=== PATIENT | female | born 1990 | race Two or more races ===

== ENCOUNTER 2024-12-28 17:18 | Inpatient (IN) | payer OTHER ==
[~2024-12-28] VITALS: Ht 165.1 cm; Wt 84.8 kg
[2024-12-28] MEDS ORDERED: LAMICTAL200 MG PO (17:35)
[2024-12-28] MEDS ORDERED: ABILIFY5 MG PO (17:35)
[2024-12-28] MEDS ORDERED: TRUVADA 200 MG1 EACH PO (17:36)
[2024-12-28] MEDS ORDERED: ONDANSETRON HCL 2 MG/ML VIAL IV ONE (18:45)
[2024-12-28] MEDS ORDERED: KETOROLAC TROMETHAMINE 30 MG VIAL IV ONE (18:45)
[2024-12-28] MEDS ORDERED: CEFTRIAXONE SODIUM 1,000 MG VIAL IV ONE (18:45)
[2024-12-28] MEDS ORDERED: FAMOtidine 10 MG/ML (4ML VIAL) IV ONE (18:45)
[2024-12-28] MEDS ORDERED: TAMSULOSIN HCL 0.4 MG CAP PO ONE ×2 (18:45→18:46)
[2024-12-28] MEDS ORDERED: KETOROLAC TROMETHAMINE 30 MG VIAL ONE (18:46)
[2024-12-28] MEDS ORDERED: ONDANSETRON HCL 2 MG/ML VIAL ONE (18:47)
[2024-12-28] MEDS ORDERED: FAMOTIDINE/PF 20 MG/2 ML VIAL ONE (18:47)
[2024-12-28] MEDS ORDERED: CEFTRIAXONE SODIUM 1,000 MG VIAL ONE (18:47)
[2024-12-28 19:27] LABS: BASO % 0.2 % (0.1-1.2); EOS # 0.01 (0.04-0.54); HEMATOCRIT 40.7 % (34.1-44.9); HEMOGLOBIN 14.3 g/dL (11.2-15.7); LYMPH # 0.61 (1.18-3.74); LYMPH % 2.6 % (19.3-53.1); MEAN CORPUSCULAR HEMOGLOBIN 32.6 pg (25.6-32.2); MONO # 1.95 (0.24-0.82); MONO % 8.2 % (4.7-12.5); NEUT # 21.08 (1.56-6.13); NEUT % 88.5 % (34.0-71.1); PLATELET COUNT 348 K/uL (163-369); RED BLOOD COUNT 4.38 M/uL (3.93-5.22); RED CELL DISTRIBUTION WIDTH 14.1 % (11.6-14.4)
[2024-12-28 19:27] LABS: URINE APPEARANCE Cloudy; URINE BILIRRUBIN Negative (NEGATIVE); URINE BLOOD Large; URINE COLOR Yellow; URINE GLUCOSE Negative (NEGATIVE); URINE KETONE Trace (NEGATIVE); URINE LEUKOCYTE Large; URINE NITRATE Negative; URINE PROTEIN 30 (NEGATIVE); URINE UROBILINOGEN 0.2 E.U./dl
[2024-12-28 19:31] LABS: URINE BACTERIA 3453.6 uL (0.0-1933); URINE EPITHELIAL CELLS 3.4 uL (0.0-38.8); URINE WBC 1791.1 uL (0.0-23.2)
[2024-12-28 19:49] LABS: INR 1.2; PARTIAL THROMBOPLASTIN TIME 27.9 SECONDS (22.0-34.0); PROTHROMBIN TIME 12.9 SECONDS (9.0-11.5)
[2024-12-28 20:08] LABS: ALBUMIN 3.6 gm/dL (3.4-5.0); ALKALINE PHOSPHATASE 136 U/L (50-136); ALT/SGPT 42 U/L (12-78); ANION GAP 11 (10.0-20.0); AST/SGOT 20 U/L (15-37); BILIRUBIN TOTAL 0.78 mg/dL (0.3-1.2); BLOOD UREA NITROGEN 9 mg/dL (7-18); BUN CREA RATIO 10 (7.0-25.0); CALCIUM 9.3 mg/dL (8.5-10.1); CARBON DIOXIDE 24 mEq/L (21-32); CHLORIDE 104 mmol/L (98-107); CREATININE SERUM 0.89 mg/dL (0.55-1.02); GFR 71.76; GLOBULINA 4.8 G/DL (2.4-3.5); GLUCOSE FASTING 110 mg/dL (65-100); OSMOLALITY SERUM 269 MOSM/KG (275-295); POTASSIUM 3.84 mEq/L (3.5-5.1); SODIUM 135 mmol/L (136-145); TOTAL PROTEIN 8.4 gm/dL (6.4-8.2)
[2024-12-28 20:25] LABS: HCG QUANTITATIVE < 1 mUI/mL (1-3)
[2024-12-28] MEDS ORDERED: METHYLPREDNISOLONE SOD SUCC 125 MG VIAL ONE (21:42)
[2024-12-28] MEDS ORDERED: DIPHENHYDRAMINE HCL 50 MG/ML VIAL 1ML ONE (21:42)
[2024-12-28] MEDS ORDERED: DIPHENHYDRAMINE HCL 50 MG/ML VIAL 1ML IV ONE (21:45)
[2024-12-28] MEDS ORDERED: METHYLPREDNISOLONE SOD SUCC 125 MG VIAL IV ONE (21:45)
[2024-12-28] MEDS ORDERED: 0.9 % SODIUM CHLORIDE 1,000 ML IV ONE (21:45)
[2024-12-28] MEDS ORDERED: CIPROFLOXACIN IN 5 % DEXTROSE 200 ML IV SCH (23:07)
[2024-12-28] MEDS ORDERED: PHENAZOPYRIDINE HCL 100 MG TABLET PO SCH (23:08)
[2024-12-28] MEDS ORDERED: ONDANSETRON HCL 4 MG in 0.9 % SODIUM CHLORIDE 50 ML IV PRN (23:15)
[2024-12-28] MEDS ORDERED: ACETAMINOPHEN 500 MG GEL..CAP PO PRN (23:15)
[2024-12-28] MEDS ORDERED: 0.9 % SODIUM CHLORIDE 1,000 ML IV SCH (23:15)
[2024-12-29] MEDS ORDERED: PHENAZOPYRIDINE HCL 100 MG TABLET PO ONE (00:38)
[2024-12-29 05:12] VITALS: BP 133/89; O2SAT 100
[2024-12-29 07:30] VITALS: BP 102/62; O2SAT 96
[2024-12-29] MEDS ORDERED: FAMOTIDINE/PF 20 MG in 0.9 % SODIUM CHLORIDE 8 ML IV PUSH SCH (09:00)
[2024-12-29] MEDS ORDERED: PATIENTS OWN MEDICATION (MEDICAMENTO EN PISO) PO SCH ×2 (09:00)
[2024-12-29] MEDS ORDERED: NICOTINE 21MG/24HR PATCH.TD24 TD SCH (12:21)
[2024-12-30 01:49] VITALS: BP 108/71; O2SAT 95
[2024-12-30 07:35] LABS: BASO % 0.3 % (0.1-1.2); EOS # 0.12 (0.04-0.54); EOS % 0.7 % (0.7-7.0); HEMATOCRIT 39.8 % (34.1-44.9); HEMOGLOBIN 13.3 g/dL (11.2-15.7); LYMPH # 2.01 (1.18-3.74); MEAN CORPUSCULAR HEMOGLOBIN 31.8 pg (25.6-32.2); MONO # 1.39 (0.24-0.82); MONO % 8.3 % (4.7-12.5); NEUT # 13.13 (1.56-6.13); NEUT % 78.2 % (34.0-71.1); PLATELET COUNT 363 K/uL (163-369); RED BLOOD COUNT 4.18 M/uL (3.93-5.22); RED CELL DISTRIBUTION WIDTH 14.3 % (11.6-14.4)
[2024-12-30 07:47] LABS: CALCIUM 8.4 mg/dL (8.5-10.1); CREATININE SERUM 0.83 mg/dL (0.55-1.02); GFR 77.78; POTASSIUM 3.78 mEq/L (3.5-5.1)
[2024-12-30 09:10] VITALS: BP 93/69; O2SAT 99
[2024-12-30 16:00] VITALS: BP 118/75; O2SAT 95
[2024-12-31 01:00] VITALS: BP 95/56; O2SAT 95
[2024-12-31 08:41] VITALS: BP 106/67; O2SAT 95
[2024-12-31 16:00] VITALS: BP 103/69; O2SAT 96
[2025-01-01 07:35] LABS: BASO % 0.5 % (0.1-1.2); EOS # 0.21 (0.04-0.54); EOS % 2.7 % (0.7-7.0); HEMATOCRIT 38.2 % (34.1-44.9); HEMOGLOBIN 12.8 g/dL (11.2-15.7); LYMPH # 1.47 (1.18-3.74); LYMPH % 18.9 % (19.3-53.1); MEAN CORPUSCULAR HEMOGLOBIN 32.7 pg (25.6-32.2); MONO # 0.92 (0.24-0.82); MONO % 11.8 % (4.7-12.5); NEUT # 5.11 (1.56-6.13); NEUT % 65.6 % (34.0-71.1); PLATELET COUNT 387 K/uL (163-369); RED BLOOD COUNT 3.92 M/uL (3.93-5.22); RED CELL DISTRIBUTION WIDTH 14.2 % (11.6-14.4)
[2025-01-01 08:18] VITALS: BP 108/74; O2SAT 96
[2025-01-01 16:20] VITALS: BP 110/70; O2SAT 96
== END 2025-01-01 19:02 | disposition home or self-care (01) | DRG 689 ==
LOC: ER 17:49 → SURG 23:08
PROVIDERS: General Practice; Internal Medicine; Student in an Organized Health Care Education/Training Program; ADMIT Student in an Organized Health Care Education/Training Program; ATTEND Student in an Organized Health Care Education/Training Program
PROC: BW21ZZZ Computerized Tomography (CT Scan) of Abdomen and Pelvis (ICD-10-PCS; principal; 2024-12-28)
DX: N39.0 Urinary tract infection, site not specified (principal); A41.9 Sepsis, unspecified organism; R65.10 Systemic inflammatory response syndrome (SIRS) of non-infectious origin without acute organ dysfunction; N12 Tubulo-interstitial nephritis, not specified as acute or chronic